=== PATIENT | female | born 1955 | race Two or more races ===

== ENCOUNTER 2020-10-18 05:15 | Day surgery (SDC) | payer OTHER ==
[~2020-10-18 05:15] MED LIST: AMBIEN10 MG PO; CHILDREN'S ASPI81 MG PO; COZAAR25 MG PO; SYNTHROID125 MCG PO; TOPROL XL25 M1 PO; XANAX2 MG PO
== END 2020-10-18 16:00 | disposition home or self-care (01) ==
LOC: CIR.AMB 05:15
PROVIDERS: ATTEND Otolaryngology Otology & Neurotology
DX: H70.892 Other mastoiditis and related conditions, left ear (principal); G96.02 Spinal cerebrospinal fluid leak, spontaneous; Z20.828 Contact with and (suspected) exposure to other viral communicable diseases